=== PATIENT | female | born 1955 | race African-American/Black ===

== ENCOUNTER 2017-05-12 18:45 | Emergency (ER) | payer MEDICARE ==
[2017-05-12] MEDS ORDERED: PROMETHAZINE HCL 25 MG TABLET PO ONE (21:36)
[2017-05-12] MEDS ORDERED: OXYCODONE-ACETAMINOPHEN 5-325 MG TABLET PO ONE (21:36)
[2017-05-12] MEDS ORDERED: LIDOCAINE 1% INJ-PF (10 MG/ML) 30 ML SDV INJ ONE (21:36)
--- NOTE | 2017-05-12 22:50 | ER Document Report ---
ED Skin Rash/Insect Bite/Abscs - General Chief Complaint: Abscess Stated Complaint: BACK PAIN Time Seen by Provider: 05/12/17 21:22 Notes: Patient is a 61 year old female that comes to the ED for chief complaint of left upper back and shoulder pain. Pain is been worsening for several days. She denies fever or chills, nausea or vomiting, injury to the area. She states she had similar event in the past and it ended up being an infection that needed to be treated. She does not have diabetes. She denies any other complaints. TRAVEL OUTSIDE OF THE [place] IN LAST 30 DAYS: No - Related Data Allergies/Adverse Reactions: No Known Allergies Allergy (Verified 05/12/17 18:47) Past Medical History - General Information source: Patient - Social History Smoking Status: Never Smoker Chew tobacco use (# tins/day): No Frequency of alcohol use: None Drug Abuse: None Lives with: Family Family History: Reviewed & Not Pertinent Patient has suicidal ideation: No Patient has homicidal ideation: No - Past Medical History Cardiac Medical History: Reports: Hx Hypertension Renal/ Medical History: Denies: Hx Peritoneal Dialysis Musculoskeltal Medical History: Reports Hx Arthritis, Reports Hx Muscle Spasm, Reports Hx Musculoskeletal Trauma Past Surgical History: Reports: Hx Appendectomy, Hx Orthopedic Surgery - rotator cuff left, right knee lipoma - Immunizations Immunizations up to date: Yes Hx Diphtheria, Pertussis, Tetanus Vaccination: Yes Review of Systems - Review of Systems Constitutional: No symptoms reported EENT: No symptoms reported Cardiovascular: No symptoms reported Respiratory: No symptoms reported Gastrointestinal: No symptoms reported Genitourinary: No symptoms reported Female Genitourinary: No symptoms reported Musculoskeletal: See HPI Skin: See HPI Hematologic/Lymphatic: No symptoms reported Neurological/Psychological: No symptoms reported Physical Exam - Vital signs Vitals: Temp Pulse Resp BP Pulse Ox 98.9 F 100 18 110/68 94 05/12/17 23:21 05/12/17 23:21 05/12/17 23:21 05/12/17 23:21 05/12/17 23:21 Interpretation: Normal - General General appearance: Appears well In distress: None - HEENT Head: Normocephalic, Atraumatic Eyes: Normal Pupils: PERRL - Respiratory Respiratory status: No respiratory distress Chest status: Nontender Breath sounds: Normal Chest palpation: Normal - Cardiovascular Rhythm: Regular Heart sounds: Normal auscultation Murmur: No - Abdominal Inspection: Normal Distension: No distension Bowel sounds: Normal Tenderness: Nontender Organomegaly: No organomegaly - Back Back: Other - Left upper back in about the mid scapular line with an indurated, fluctuant area with surrounding erythema. No wounds, no streaking away from the site, no other abnormality. No tender areas other than the abscess.. No: Vertebra tenderness - Extremities General upper extremity: Normal inspection, Nontender, Normal color, Normal ROM , Normal temperature General lower extremity: Normal inspection, Nontender, Normal color, Normal ROM , Normal temperature, Normal weight bearing. No: Alex's sign - Neurological Neuro grossly intact: Yes Cognition: Normal Orientation: AAOx4 [place] Coma Scale Eye Opening: Spontaneous [place] Coma Scale Verbal: Oriented [place] Coma Scale Motor: Obeys Commands [place] Coma Scale Total: 15 Speech: Normal Motor strength normal: LUE, RUE, LLE, RLE Sensory: Normal - Psychological Associated symptoms: Normal affect, Normal mood - Skin Skin Temperature: Warm Skin Moisture: Dry Skin Color: Normal Course - Re-evaluation Re-evalutation: Abscess drained, cleaned, dressed. Abscess is actually quite small, surrounding cellulitis spreading away from the site. Placed on Bactrim and Keflex. Discussed care, follow-up, return precautions with patient and significant other. They state understanding and agreement. - Vital Signs Vital signs: Temp Pulse Resp BP Pulse Ox 98.9 F 100 18 110/68 94 05/12/17 23:21 05/12/17 23:21 05/12/17 23:21 05/12/17 23:21 05/12/17 23:21 Procedures - Incision and Drainage Left upper back Type: Single Anesthetic type: 1% Lidocaine mL's of anesthetic: 5 Blade size: 11 I&D procedure: Shurclens applied - Surgical cleanser, Sterile dressing applied Incision Method: Incision made by scalpel Amount/type of drainage: Small amount of purulent drainage, small amount of bloody drainage Discharge - Discharge Clinical Impression: Abscess Cellulitis Qualifiers: Site of cellulitis: other site Qualified Code(s): L03.818 - Cellulitis of other sites Condition: Stable Disposition: HOME, SELF-CARE Instructions: Oral Narcotic Medication ([facility]) Additional Instructions: The abscess has been drained, your exam also shows surrounding infection called cellulitis. As result please take the antibiotics Bactrim and Keflex as prescribed to completion. Follow-up with primary care. Keep area clean, clean with soap and water, keep absorbing bandage over the area. Return if you worsen including spreading redness, fever of 100.4 or greater, or any other concerning or worsening symptoms. Prescriptions: Cephalexin Monohydrate [Keflex 500 mg Capsule] 500 mg PO Q6H 7 Days #28 capsule Hydrocodone/Acetaminophen [[facility]-325 mg Tablet] 1 - 2 tab PO ASDIR PRN #10 tablet PRN Reason: Sulfamethoxazole/Trimethoprim [Bactrim Ds Tablet] 1 each PO BID #14 tablet
[2017-05-12] MEDS ORDERED: SULFAMETHOXAZOLE/TRIMETHOPRIM 800-160 MG TABLET PO ONE (22:53)
[2017-05-12] MEDS ORDERED: CEPHALEXIN 500 MG CAPSULE PO ONE (22:53)
[2017-05-12] MEDS ORDERED: HYDROCODONE/ACETAMINOPHEN 5-325 MG (6 TAB/ER DISP) PO PRN (22:53)
[2017-05-12 23:22] VITALS: BP 110/68
== END 2017-05-12 23:21 | disposition home or self-care (01) ==
LOC: ER 18:45
PROC: 0H96XZZ Drainage of Back Skin, External Approach (ICD-10-PCS; principal; 2017-05-12)
DX: L02.212 Cutaneous abscess of back [any part, except buttock and flank] (principal); L03.818 Cellulitis of other sites; M54.6 Pain in thoracic spine; M25.512 Pain in left shoulder
CPT/HCPCS: 99283; 10060; A6266; A9270 ×5; J3490

== ENCOUNTER → 2017-07-20 | Outpatient (CLI) | payer MEDICARE ==
--- NOTE | 2017-07-20 13:20 | RADIOLOGY REPORT (SQ) ---
EXAM DESCRIPTION: CT CHEST WITH COMPLETED DATE/TIME: 07/20/2017 1:02 pm REASON FOR STUDY: S21.211A LAC W/O FB OF R BK WL OF THORAX W/O PENET THOR CAVITY, INIT L02.212 CUTA NEOUS ABSCESS OF BACK ANY PART, EXCEPT BUTTOCK S21.211A LAC W/O FB OF R BK WL OF THORAX W/O PENET TH OR CAVI COMPARISON: None. TECHNIQUE: CT scan of the chest performed using helical scanning technique with dynamic intravenous contrast injection. Images reviewed with lung, soft tissue and bone windows. Reconstructed coronal and sagittal MPR images reviewed. All images stored on PACS. All CT scanners at this facility use dose modulation, iterative reconstruction, and/or weight based d osing when appropriate to reduce radiation dose to as low as reasonably achievable (ALARA). [facility]: Dose Right [facility]: CareDose [facility]: Dose Right [facility]: Teradose 4D [facility]: Beegit CONTRAST TYPE AND DOSE: contrast/concentration: Isovue 370.00 mg/ml; Total Contrast Delivered: 80.0 ml; Total Saline Delivered: 55.0 ml RENAL FUNCTION: Creatinine 0.7. RADIATION DOSE: CT Rad equipment meets quality standard of care and radiation dose reduction techniq ues were employed. CTDIvol: 19.4 mGy. DLP: 707 mGy-cm. . LIMITATIONS: None. FINDINGS: LUNGS AND PLEURA: No opacities, nodules, masses. No pneumothorax. No effusions. HILAR AND MEDIASTINAL STRUCTURES: No identified masses or abnormal nodes. HEART AND VASCULAR STRUCTURES: No aneurysm or dissection. No central pulmonary emboli. No pericardi al effusion. HARDWARE: None in the chest. UPPER ABDOMEN: No significant findings. Limited exam. THYROID AND OTHER SOFT TISSUES: No masses. No adenopathy. BONES: No significant finding. OTHER: No other significant finding. IMPRESSION: NORMAL CT OF THE CHEST WITH IV CONTRAST. TECHNICAL DOCUMENTATION: JOB ID: [id number] Quality ID # [id number]: Final reports with documentation of one or more dose reduction techniques (e.g., Au tomated exposure control, adjustment of the mA and/or kV according to patient size, use of iterative reconstruction technique) 2010 [employer]- All Rights Reserved Reading location - IP/workstation name: [email or web address]
== END ==
LOC: RAD 13:28
PROVIDERS: ATTEND Nurse Practitioner
DX: L02.212 Cutaneous abscess of back [any part, except buttock and flank] (principal); S21.211A Laceration without foreign body of right back wall of thorax without penetration into thoracic cavity, initial encounter; X58.XXXA Exposure to other specified factors, initial encounter
CPT/HCPCS: 71260; 82565

== ENCOUNTER → 2018-01-26 | Outpatient (CLI) | payer MEDICARE ==
[2018-01-26 11:21] LABS: ALANINE AMINOTRANSFERASE 19 U/L (9-52); ALBUMIN 3.6 g/dL (3.5-5.0); ALKALINE PHOSPHATASE 96 U/L (38-126); ANION GAP 11 (5-19); ASPARTATE AMINO TRANSFERASE 19 U/L (14-36); BILIRUBIN,DIRECT 0.2 mg/dL (0.0-0.4); BILIRUBIN,TOTAL 0.5 mg/dL (0.2-1.3); BLOOD UREA NITROGEN 13 mg/dL (7-20); CARBON DIOXIDE 29 mmol/L (22-30); CHLORIDE 102 mmol/L (98-107); CHOLESTEROL 192.82 mg/dL (0-200); GLUCOSE 93 mg/dL (75-110); SODIUM 141.8 mmol/L (137-145); TOTAL PROTEIN 7.4 g/dL (6.3-8.2); TRIGLYCERIDES 57 mg/dL (<150)
[2018-01-26 11:32] LABS: DIRECT LDL 127 mg/dL (<100)
== END ==
LOC: OD 09:50
PROVIDERS: ATTEND Specialist
DX: I10 Essential (primary) hypertension (principal); Z13.1 Encounter for screening for diabetes mellitus
CPT/HCPCS: 36415; 80053; 80061